=== PATIENT | male | born 1955 | race American Indian/Alaskan Native ===

== ENCOUNTER 2017-11-28 08:42 | Emergency (ER) | payer SELFPAY ==
[2017-11-28 09:25] VITALS: BP 166/89
--- NOTE | 2017-11-28 10:52 | Emergency Department Report ---
Blank Doc - Documentation Documentation: Patient is a 62-year-old -[place] male who is presenting with a rash on the palms as well as on the feet for approximately a week. Patient was seen here 4 days ago and was told that this was most likely fungal was given a cream. Patient states the rash is not improved. Patient denied any fevers chills nausea vomiting or any other symptoms at this time. Because of the distribution of the patient's rash RPR will be done to rule out syphilis. If this test is negative the patient will be referred to dermatology as cream maybe change.
--- NOTE | 2017-11-28 11:02 | Emergency Department Report ---
- General Chief complaint: Skin Rash Stated complaint: HAND RASH Time Seen by Provider: 11/28/17 10:28 Source: patient Mode of arrival: Ambulatory Limitations: No Limitations - History of Present Illness Initial comments: 62-year-old male past medical history none presents with complaint of several weeks of itchy bumpy rash on his hands. Denies any fevers chills denies any pain does state it occasionally itches and is uncomfortable. Denies any other symptoms. Patient's screening by Dr. Heard earlier. Onset/Timin -: week(s) Location: L hand, R hand, L foot, R foot Severity: moderate Associated symptoms: itching - Related Data Previous Rx's Medication Instructions Recorded Last Taken Type Fluconazole [Diflucan] 150 mg PO ONCE #1 tablet 11/28/17 Unknown Rx Ketoconazole 1 applicatio TP DAILY #1 cream..g. 11/28/17 Unknown Rx Triamcinolone 0.1% [Kenalog 0.1% 1 applic TP TID #1 tube 11/28/17 Unknown Rx CREAM] Allergies Allergy/AdvReac Type Severity Reaction Status Date / Time No Known Allergies Allergy Unverified 11/28/17 09:25 Abscess Boil HPI - HPI Chief Complaint: Skin Rash Stated Complaint: HAND RASH Time Seen by Provider: 11/28/17 10:28 Home Medications: Previous Rx's Medication Instructions Recorded Last Taken Type Fluconazole [Diflucan] 150 mg PO ONCE #1 tablet 11/28/17 Unknown Rx Ketoconazole 1 applicatio TP DAILY #1 cream..g. 11/28/17 Unknown Rx Triamcinolone 0.1% [Kenalog 0.1% 1 applic TP TID #1 tube 11/28/17 Unknown Rx CREAM] Allergies/Adverse Reactions: Allergies Allergy/AdvReac Type Severity Reaction Status Date / Time No Known Allergies Allergy Unverified 11/28/17 09:25 ED Review of Systems ROS: Stated complaint: HAND RASH Other details as noted in HPI Constitutional: denies: chills, fever Eyes: denies: eye pain, eye discharge, vision change ENT: denies: ear pain, throat pain Respiratory: denies: cough, shortness of breath, wheezing Cardiovascular: denies: chest pain, palpitations Endocrine: no symptoms reported Gastrointestinal: denies: abdominal pain, nausea, diarrhea Genitourinary: denies: urgency, dysuria Musculoskeletal: denies: back pain, joint swelling, arthralgia Skin: as per HPI. denies: rash, lesions Neurological: denies: headache, weakness, paresthesias Psychiatric: denies: anxiety, depression Hematological/Lymphatic: denies: easy bleeding, easy bruising ED Past Medical Hx - Past Medical History Previous Medical History?: No - Surgical History Past Surgical History?: Yes Additional Surgical History: left forearm surgery - Social History Smoking Status: Never Smoker Substance Use Type: Alcohol - Medications Home Medications: Home Medications Medication Instructions Recorded Confirmed Last Taken Type Fluconazole [Diflucan] 150 mg PO ONCE #1 tablet 11/28/17 Unknown Rx Ketoconazole 1 applicatio TP DAILY #1 cream..g. 11/28/17 Unknown Rx Triamcinolone 0.1% [Kenalog 0.1% 1 applic TP TID #1 tube 11/28/17 Unknown Rx CREAM] ED Physical Exam - General Limitations: No Limitations General appearance: alert, in no apparent distress - Head Head exam: Present: atraumatic, normocephalic - Eye Eye exam: Present: normal appearance - ENT ENT exam: Present: mucous membranes moist - Neck Neck exam: Present: normal inspection - Respiratory Respiratory exam: Present: normal lung sounds bilaterally. Absent: respiratory distress - Cardiovascular Cardiovascular Exam: Present: regular rate, normal rhythm. Absent: systolic murmur, diastolic murmur, rubs, gallop - GI/Abdominal GI/Abdominal exam: Present: soft, normal bowel sounds - Rectal Rectal exam: Present: deferred - Extremities Exam Extremities exam: Present: normal inspection - Back Exam Back exam: Present: normal inspection - Neurological Exam Neurological exam: Present: alert, oriented X3, CN II-XII intact, normal gait - Psychiatric Psychiatric exam: Present: normal affect, normal mood - Skin Skin exam: Present: warm, dry, intact, normal color. Absent: rash - Expanded Skin Exam Expanded Distribution of rash: involves palms/soles (dry scaly plaques on the palms and soles) ED Course Vital Signs 11/28/17 09:18 Temperature 98.5 F Pulse Rate 65 Respiratory 18 Rate Blood Pressure 166/89 Blood Pressure 166/89 [Right] O2 Sat by Pulse 99 Oximetry ED Medical Decision Making - Medical Decision Making A/P: Possible contact dermatitis hand, vs dihydrotic eczema 1-follow-up with dermatology 2-topical treatments, empiric course of fluconazole 3- RPR negative Critical care attestation.: If time is entered above; I have spent that time in minutes in the direct care of this critically ill patient, excluding procedure time. ED Disposition Clinical Impression: Rash of hands Contact dermatitis Qualifiers: Contact dermatitis type: unspecified Contact dermatitis trigger: unspecified trigger Qualified Code(s): L25.9 - Unspecified contact dermatitis, unspecified cause Disposition: TO HOME OR SELFCARE Is pt being admited?: No Does the pt Need Aspirin: No Condition: Stable Instructions: Eczema (ED), Contact Dermatitis (ED), Tinea Corporis (ED) Prescriptions: Fluconazole [Diflucan] 150 mg PO ONCE #1 tablet Ketoconazole 1 applicatio TP DAILY #1 cream..g. Triamcinolone 0.1% [Kenalog 0.1% CREAM] 1 applic TP TID #1 tube Referrals: [facility] [Provider Group] - 3-5 Days Time of Disposition: 13:32
[2017-11-28] MEDS ORDERED: DIFLUCAN PO ONE ×2 (14:30→14:54)
== END 2017-11-28 14:36 | disposition home or self-care (01) ==
LOC: ED 08:42
DX: L25.9 Unspecified contact dermatitis, unspecified cause (principal)
CPT/HCPCS: 36415; 86592; 99283